=== PATIENT | female | born 1955 | race Caucasian/White ===

== ENCOUNTER 2018-10-30 06:17 | Day surgery (SDC) | payer OTHER ==
[2018-10-26 10:56] VITALS: BP 138/67
[2018-10-26 10:57] LABS: CREATININE 0.6 mg/dL (0.5-1.5); POTASSIUM 4.6 mmol/L (3.5-5.1)
[2018-10-26 10:58] LABS: INR 0.92 (0.85-1.15); PARTIAL THROMBOPLASTIN TIME 28.4 SEC (26.3-35.5); PROTHROMBIN TIME 9.7 SEC (9.6-11.6)
[~2018-10-30] VITALS: Ht 167.6 cm; Wt 88.1 kg
[2018-10-30 08:15] VITALS: BP 173/65
[2018-10-30 08:32] LABS: BASOPHILS % (AUTO) 0.5 % (0.0-5.0); HEMATOCRIT 43.4 % (36-48); LYMPHOCYTES % (AUTO) 8.8 % (21.0-51.0); MEAN CORPUSCULAR HEMOGLOBIN 30.3 pg (27.0-33.0); MEAN CORPUSCULAR HGB CONC 33.2 g/dL (32.0-36.0); MEAN CORPUSCULAR VOLUME 91.2 fL (79-99); MONOCYTES % (AUTO) 3.1 % (3.0-13.0); NEUTROPHILS % (AUTO) 87.6 % (40.0-77.0); PLATELET COUNT (AUTO) 334 K/uL (130-400); RED BLOOD CELL COUNT(AUTO) 4.76 MIL/uL (4.00-5.50); RED CELL DISTRIBUTION WIDTH 13.5 % (11.0-15.5); WHITE BLOOD COUNT (AUTO) 11.6 K/uL (4.8-10.8)
[2018-10-30] MEDS ORDERED: SODIUM BICARB 50MEQ 50ML VIAL ONE (08:32)
[2018-10-30] MEDS ORDERED: LIDOCAINE HCL 1% MDV 50ML VIAL ONE (08:32)
[2018-10-30] MEDS ORDERED: LIDOCAINE 1%-EPI 1:100,000 20 ML VIAL IJ ONE (08:49)
[2018-10-30] MEDS ORDERED: FENTANYL CITRATE PF 50 MCG/1 ML 2ML VIAL ONE (09:26)
[2018-10-30] MEDS ORDERED: MIDAZOLAM HCL 1 MG/ML 2ML VIAL ONE (09:26)
[2018-10-30] MEDS ORDERED: OCTYL 2-CYANOACRYLATE 1 EACH TP ONE (10:14)
[2018-10-30] MEDS ORDERED: ACETAMINOPHEN 325 MG TAB PO PRN (10:30)
[2018-10-30 11:00] VITALS: BP 140/84
== END 2018-10-30 11:15 | disposition home or self-care (01) ==
LOC: DAH 06:17
PROVIDERS: ATTEND Internal Medicine Medical Oncology
DX: Z45.2 Encounter for adjustment and management of vascular access device (principal); C50.912 Malignant neoplasm of unspecified site of left female breast; K21.9 Gastro-esophageal reflux disease without esophagitis; Z98.890 Other specified postprocedural states; Z79.899 Other long term (current) drug therapy; Z98.51 Tubal ligation status; Z79.01 Long term (current) use of anticoagulants
CPT/HCPCS: 36415 ×2; 36561; 77001; 80048; 85025; 85610; 85730; A4606; C1788; C1894; J1644 ×2; J2250; J3010; J3490 ×3; 36571; 99156; 99157

== ENCOUNTER 2019-01-29 07:46 | Day surgery (SDC) | payer OTHER ==
[2019-01-27 08:32] LABS: CREATININE 0.8 mg/dL (0.5-1.5); POTASSIUM 3.6 mmol/L (3.5-5.1)
[2019-01-27 08:33] VITALS: BP 146/74
[2019-01-27 08:41] LABS: INR 0.91 (0.85-1.15); PARTIAL THROMBOPLASTIN TIME 27.3 SEC (26.3-35.5); PROTHROMBIN TIME 9.6 SEC (9.6-11.6)
--- NOTE | 2019-01-27 09:00 | NUR ---
SPOKE TO TANIA POLLACK RN OF DR. SELF OFFICE FOR UPDATED H AND P WITH PLAN OF PROCEDURE AND TO CLARIFY PROCEDURE REQUESTING TO BE DONE. PATIENT NOTIFIED OF PENDING CLARIFICATION. PER TANIA POLLACK RN SHE WILL FAX UPDATED INFORMATION
--- NOTE | 2019-01-27 09:34 | NUR ---
NOTIFIED DR. FERMIN OF PT TAKING ANTIBIOTIC FOR REDNESS ON [place]-A[place] SITE, PER DR. FRANCO OK TO PROCEED NO NEW ORDERS.
[~2019-01-29] VITALS: Ht 167.6 cm; Wt 84.5 kg
[2019-01-29 08:20] VITALS: BP 162/95
[2019-01-29] MEDS ORDERED: IODIXANOL 320 MG/ML 100 ML VIAL ONE (08:54)
[2019-01-29] MEDS ORDERED: SODIUM CHLORIDE 0.9% 1000ML 1,000 ML IV ONE (09:13)
--- NOTE | 2019-01-29 10:20 | NUR ---
PT'S PROCEDURE CANCELLED, NO INTERVENTION DONE AND NO CHANGE IN PT'S STATUS SINCE ADMISSION. PT SENT HOME AWAKE, ALERT AND S ANY DISTRESS OR COMPLAINTS OF PAIN. PT INSTRUCTED TO FINISH ANTIBIOTIC PRESCRIBED AND TO CALL HER S OFFICE FOR FURTHER INSTRUCTION HOW TO PROCEED.
== END 2019-01-29 10:20 | disposition home or self-care (01) ==
LOC: DAH 07:46
PROVIDERS: ATTEND Internal Medicine Medical Oncology
DX: T80.212A Local infection due to central venous catheter, initial encounter (principal); C50.912 Malignant neoplasm of unspecified site of left female breast; D70.2 Other drug-induced agranulocytosis; R30.0 Dysuria; K21.9 Gastro-esophageal reflux disease without esophagitis; Z17.0 Estrogen receptor positive status [ER+]; Z98.51 Tubal ligation status; Z90.89 Acquired absence of other organs; Z88.0 Allergy status to penicillin; Z90.49 Acquired absence of other specified parts of digestive tract; Z53.8 Procedure and treatment not carried out for other reasons; Z79.899 Other long term (current) drug therapy; E86.0 Dehydration; Z79.01 Long term (current) use of anticoagulants
CPT/HCPCS: 36415; 76000; 80048; 85610; 85730; A4606; J1644; J7030; Q9967